=== PATIENT | female | born 1995 | race Caucasian/White ===

== ENCOUNTER 2020-12-24 07:01 | Inpatient (IN) | payer BC ==
[2020-12-24] MEDS ORDERED: Sodium Chloride 0.9% 10 ML Syringe FLUSH PRN (07:20)
[2020-12-24] MEDS ORDERED: Nalbuphine 10 MG/1 ML Vial IVPUSH PRN (07:20)
[2020-12-24] MEDS ORDERED: Ondansetron 4 MG/2 ML SDV IVPUSH PRN (07:20)
[2020-12-24] MEDS ORDERED: Calcium Carbonate 500 MG Tab.Chew PO PRN (07:20)
[2020-12-24] MEDS ORDERED: Oxytocin/Lactated Ringers 10 UNIT/1,000 ML BAG IV SCH ×2 (07:30)
[2020-12-24] MEDS: Lactated Ringers 1,000 ML IV SCH ×3 (07:44→15:36)
[2020-12-24] MEDS ORDERED: Lidocaine 1% 50 ML MDV INJECT ONE (08:30)
--- NOTE | 2020-12-24 08:41 | PCM.LDHP ---
L&D History of Present Illness - General Date of Service: 12/24/20 Admit Problem/Dx: Patient Status Order with Admit Dx/Problem 12/24/20 07:21 Patient Status [ADT] Routine Admission Diagnosis/Problem Admission Diagnosis/Problem Term - History of Present Illness Introduction:: 25 year old here at 39w3 by LMP cw ultrasound presents for elective induction. PNC with myself without complications. - Related Data Allergies/Adverse Reactions: Allergies Allergy/AdvReac Type Severity Reaction Status Date / Time No Known Allergies Allergy Verified 12/07/20 17:38 H&P Review of Systems - Review of Systems: Review Of Systems: See Below General: Reports: No Symptoms HEENT: Reports: No Symptoms Pulmonary: Reports: No Symptoms Cardiovascular: Reports: No Symptoms Gastrointestinal: Reports: No Symptoms Genitourinary: Reports: No Symptoms Musculoskeletal: Reports: No Symptoms Skin: Reports: No Symptoms Psychiatric: Reports: No Symptoms Neurological: Reports: No Symptoms Hematologic/Lymphatic: Reports: No Symptoms Immunologic: Reports: No Symptoms L&D Exam - Exam Exam: See Below - Vital Signs Vital Signs: Last Vital Signs Temp 37.3 C 12/24/20 07:20 Pulse 114 H 12/24/20 07:20 Resp 18 12/24/20 07:20 BP 121/74 12/24/20 07:20 Pulse Ox 99 12/24/20 07:20 Weight: 90.265 kg - OB Specific Contraction Intensity: Moderate Movement: Active Heart Tones: Present Heart Rate (FHR) Variability: Moderate (6-25 bmp) Presentation: Vertex - Duvall Score Duvall Score Cervix Position: Midposition Duvall Score Consistency: Soft Duvall Score Effacement: 51-70% Duvall Score Dilation: 3-4 cm Duvall Score Infant's Station: -2 Duvall Score Total: 8 - Exam General: Alert, Oriented HEENT: PERRLA, Conjunctiva Clear, EACs Clear, EOMI, Hearing Intact, Mucosa Moist & [place], Nares Patent, Normal Nasal Septum, Posterior Pharynx Clear, TMs Clear Neck: Supple, Trachea Midline Lungs: Clear to Auscultation, Normal Respiratory Effort Cardiovascular: Regular Rate, Regular Rhythm GI/Abdominal Exam: Normal Bowel Sounds, Soft, Non-Tender, No Organomegaly, No Distention, No Abnormal Bruit, No Mass, Pelvis Stable Rectal Exam: Normal Exam, Normal Rectal Tone Genitourinary: Normal external exam, Normal bimanual exam, Normal speculum exam Back Exam: Normal Inspection, Full Range of Motion Extremities: Normal Inspection, Normal Range of Motion, Non-Tender, No Pedal Edema, Normal Capillary Refill Skin: Warm, Dry, Intact Neurological: Cranial Nerves Intact, Reflexes Equal Bilateral Psychiatric: Alert, Normal Affect, Normal Mood - Patient Data Lab Results Last 24 hrs: Laboratory Results - last 24 hr 12/24/20 Range/Units 07:46 WBC 8.48 (3.98-10.04) K/mm3 RBC 3.92 L (3.98-5.22) M/mm3 Hgb 11.3 (11.2-15.7) gm/dl Hct 34.0 L (34.1-44.9) % MCV 86.7 (79.4-94.8) fl MCH 28.8 (25.6-32.2) pg MCHC 33.2 (32.2-35.5) g/dl RDW Std Deviation 41.5 (36.4-46.3) fL Plt Count 262 (182-369) K/mm3 MPV 9.6 (9.4-12.3) fl Neut % (Auto) 73.7 H (34.0-71.1) % Lymph % (Auto) 16.3 L (19.3-51.7) % [place] % (Auto) 8.6 (4.7-12.5) % Eos % (Auto) 0.8 (0.7-5.8) Baso % (Auto) 0.2 (0.1-1.2) % Neut # (Auto) 6.25 H (1.56-6.13) K/mm3 Lymph # (Auto) 1.38 (1.18-3.74) K/mm3 [place] # (Auto) 0.73 H (0.24-0.36) K/mm3 Eos # (Auto) 0.07 (0.04-0.36) K/mm3 Baso # (Auto) 0.02 (0.01-0.08) K/mm3 Result Diagrams: 12/24/20 07:46 Problem List Initiated/Reviewed/Updated: Yes Orders Last 24hrs: Active Orders 24 hr Category Date Time Status Patient Status [ADT] Routine ADT 12/24/20 07:21 Active Activity as Tolerated [RC] PFP Care 12/24/20 07:20 Active Communication Order [RC] ASDIRECTED Care 12/24/20 07:20 Active Communication Order [RC] ASDIRECTED Care 12/24/20 07:20 Active Communication Order [RC] ASDIRECTED Care 12/24/20 07:20 Active Communication Order [RC] ASDIRECTED Care 12/24/20 07:20 Active Heart Tones [RC] ASDIRECTED Care 12/24/20 07:22 Active Monitoring [RC] INTERMITTENT Care 12/24/20 07:20 Active Non Stress Test [RC] PER UNIT ROUTINE Care 12/24/20 07:20 Active Notify Provider [RC] ASDIRECTED Care 12/24/20 07:20 Active Notify Provider [RC] PFP Care 12/24/20 07:20 Active Notify Provider [RC] PRN Care 12/24/20 07:20 Active Peripheral IV Care [RC] . DIRECTED Care 12/24/20 07:22 Active Pump Management, Intrathecal [RC] ASDIRECTED Care 12/24/20 07:22 Active Urinary Catheter Assessment [RC] ASDIRECTED Care 12/24/20 07:20 Active Vaginal Exam [RC] ASDIRECTED Care 12/24/20 07:20 Active Vital Signs [RC] PER UNIT ROUTINE Care 12/24/20 07:20 Active Regular Diet [DIET] Diet 12/24/20 Breakfast Active BLOOD BANK HOLD SPECIMEN [BBK] Stat Lab 12/24/20 07:20 Ordered CORONAVIRUS COVID-19 PB [MOLEC] Stat Lab 12/24/20 07:00 Received RAPID PLASMA REAGIN,RPR [CHEM] Stat Lab 12/24/20 07:46 Received Calcium Carbonate [Tums] Med 12/24/20 07:20 Active 1,000 mg PO Q2H PRN Lactated Ringers [Ringers, Lactated] 1,000 ml Med 12/24/20 07:30 Active IV ASDIRECTED Nalbuphine [Nubain] Med 12/24/20 07:20 Active 10 mg IVPUSH Q2H PRN Ondansetron [Zofran] Med 12/24/20 07:20 Active 4 mg IVPUSH Q4H PRN Oxytocin/Lactated Ringers [Pitocin in LR 10 Units/1,000 Med 12/24/20 07:30 Active ML] 10 unit in 1,000 ml IV .CONTINUOUS Oxytocin/Lactated Ringers [Pitocin in LR 10 Units/1,000 Med 12/24/20 07:30 Active ML] 10 unit in 1,000 ml IV TITRATE Sodium Chloride 0.9% [Saline Flush] Med 12/24/20 07:20 Active 10 ml FLUSH ASDIRECTED PRN Electronic Heart Tones Ext w TOCO [WOMSER] Ot 12/24/20 07:20 Ordered Routine Electronic Heart Tones Internal [WOMSER] Per Unit Ot 12/24/20 07:20 Ordered Routine Peripheral IV Insertion Adult [OM.PC] Routine Ot 12/24/20 07:20 Ordered Resuscitation Status Routine Resus Stat 12/24/20 07:20 Ordered Medication Orders Calcium Carbonate/Glycine (Calcium Carbonate 500 Mg Tab.Chew) 1,000 mg PO Q2H PRN PRN Reason: Indigestion Lactated Ringer's (Ringers, Lactated) 1,000 mls @ 100 mls/hr IV ASDIRECTED ARTURO Last Admin: 12/24/20 07:44 Dose: 100 mls/hr Documented by: RUMMVIR Oxytocin/Lactated Ringer's (Pitocin In Lr 10 Units/1,000 Ml) 10 unit in 1,000 mls @ 12 mls/hr IV TITRATE ARTURO; Protocol Last Admin: 12/24/20 08:07 Dose: 2 munits/min, 12 mls/hr Documented by: RUMMVIR Oxytocin/Lactated Ringer's (Pitocin In Lr 10 Units/1,000 Ml) 10 unit in 1,000 mls @ 500 mls/hr IV .CONTINUOUS ARTURO Nalbuphine HCl (Nalbuphine 10 Mg/1 Ml Vial) 10 mg IVPUSH Q2H PRN PRN Reason: Pain Ondansetron HCl (Ondansetron 4 Mg/2 Ml Sdv) 4 mg IVPUSH Q4H PRN PRN Reason: Nausea/Vomiting Sodium Chloride (Sodium Chloride 0.9% 10 Ml Syringe) 10 ml FLUSH ASDIRECTED PRN PRN Reason: Keep Vein Open Assessment/Plan Comment:: Term induction - pitocin, arom when able - labs reviewed -admission labs and covid pending -anesthesia per patient request.
--- NOTE | 2020-12-24 12:53 | PCM.PNLD ---
Labor Progress Note - VS & Meds Vital Signs: Last Vital Signs Temp 37.3 C 12/24/20 07:20 Pulse 114 H 12/24/20 07:20 Resp 18 12/24/20 07:20 BP 121/74 12/24/20 07:20 Pulse Ox 99 12/24/20 07:20 Active Medications: Current Medications Calcium Carbonate/Glycine (Calcium Carbonate 500 Mg Tab.Chew) 1,000 mg PO Q2H PRN PRN Reason: Indigestion Lactated Ringer's (Ringers, Lactated) 1,000 mls @ 100 mls/hr IV ASDIRECTED ARTURO Last Admin: 12/24/20 07:44 Dose: 100 mls/hr Documented by: Oxytocin/Lactated Ringer's (Pitocin In Lr 10 Units/1,000 Ml) 10 unit in 1,000 mls @ 12 mls/hr IV TITRATE ARTURO; Protocol Last Titration: 12/24/20 12:33 Dose: 14 munits/min, 84 mls/hr Documented by: Oxytocin/Lactated Ringer's (Pitocin In Lr 10 Units/1,000 Ml) 10 unit in 1,000 mls @ 500 mls/hr IV .CONTINUOUS ARTURO Nalbuphine HCl (Nalbuphine 10 Mg/1 Ml Vial) 10 mg IVPUSH Q2H PRN PRN Reason: Pain Ondansetron HCl (Ondansetron 4 Mg/2 Ml Sdv) 4 mg IVPUSH Q4H PRN PRN Reason: Nausea/Vomiting Sodium Chloride (Sodium Chloride 0.9% 10 Ml Syringe) 10 ml FLUSH ASDIRECTED PRN PRN Reason: Keep Vein Open Discontinued Medications Lidocaine HCl (Lidocaine 1% 50 Ml Mdv) 20 ml INJECT ONETIME ONE Stop: 12/24/20 08:31 - Uterine Contractions Contraction Intensity: Moderate - Monitoring Heart Rate (FHR) Variability: Moderate (6-25 bmp) - Vaginal Exam Dilation (cm): 3 Effacement (Percent): 90 Station: 0 Cervical Position: Anterior - Labor Progress (Free Text) Labor Progress: AROM clear fluid. Doing well
[2020-12-24] MEDS ORDERED: fentaNYL 100 MCG/2 ML SDV ONE (13:22)
[2020-12-24] MEDS ORDERED: diphenhydrAMINE 50 MG/ML SDV IVPUSH PRN (13:23)
[2020-12-24] MEDS ORDERED: fentaNYL 100 MCG/2 ML SDV EPIDUR PRN (13:23)
[2020-12-24] MEDS ORDERED: ePHEDrine 50 MG/ML SDV IVPUSH PRN (13:23)
[2020-12-24] MEDS ORDERED: Bupivacaine/fentaNYL/NS 100 ML Bag EPIDUR PRN (13:23)
--- NOTE | 2020-12-24 14:00 | PCM.PREANE ---
Preanesthetic Assessment - Procedure Proposed Procedure: epidural - Anesthesia/Transfusion/Family Hx Anesthesia History: Prior Anesthesia Without Reaction Family History of Anesthesia Reaction: No Transfusion History: No Prior Transfusion(s) - Review of Systems General: Fatigue, Malaise Pulmonary: No Symptoms Cardiovascular: No Symptoms Gastrointestinal: Abdominal Pain (labor) Neurological: No Symptoms Other: Reports: None - Physical Assessment Vital Signs: Last Vital Signs Temp 37.3 C 12/24/20 07:20 Pulse 114 H 12/24/20 07:20 Resp 18 12/24/20 07:20 BP 121/74 12/24/20 07:20 Pulse Ox 99 12/24/20 07:20 Height: 1.75 m Weight: 90.265 kg ASA Class: 2 Mental Status: Alert & Oriented x3 Airway Class: Mallampati = 1 Dentition: Reports: Normal Dentition Thyro-Mental Finger Breadths: 3 Mouth Opening Finger Breadths: 3 ROM/Head Extension: Full Lungs: Clear to Auscultation, Normal Respiratory Effort Cardiovascular: Regular Rate, Regular Rhythm - Lab Values: Laboratory Last Values WBC 8.48 K/mm3 (3.98-10.04) 12/24/20 07:46 RBC 3.92 M/mm3 (3.98-5.22) L 12/24/20 07:46 Hgb 11.3 gm/dl (11.2-15.7) 12/24/20 07:46 Hct 34.0 % (34.1-44.9) L 12/24/20 07:46 MCV 86.7 fl (79.4-94.8) 12/24/20 07:46 MCH 28.8 pg (25.6-32.2) 12/24/20 07:46 MCHC 33.2 g/dl (32.2-35.5) 12/24/20 07:46 RDW Std Deviation 41.5 fL (36.4-46.3) 12/24/20 07:46 Plt Count 262 K/mm3 (182-369) 12/24/20 07:46 MPV 9.6 fl (9.4-12.3) 12/24/20 07:46 Neut % (Auto) 73.7 % (34.0-71.1) H 12/24/20 07:46 Lymph % (Auto) 16.3 % (19.3-51.7) L 12/24/20 07:46 [place] % (Auto) 8.6 % (4.7-12.5) 12/24/20 07:46 Eos % (Auto) 0.8 (0.7-5.8) 12/24/20 07:46 Baso % (Auto) 0.2 % (0.1-1.2) 12/24/20 07:46 Neut # (Auto) 6.25 K/mm3 (1.56-6.13) H 12/24/20 07:46 Lymph # (Auto) 1.38 K/mm3 (1.18-3.74) 12/24/20 07:46 [place] # (Auto) 0.73 K/mm3 (0.24-0.36) H 12/24/20 07:46 Eos # (Auto) 0.07 K/mm3 (0.04-0.36) 12/24/20 07:46 Baso # (Auto) 0.02 K/mm3 (0.01-0.08) 12/24/20 07:46 SARS-CoV-2 RNA (PB) Negative (NEGATIVE) 12/24/20 07:00 - Allergies Allergies/Adverse Reactions: Allergies Allergy/AdvReac Type Severity Reaction Status Date / Time No Known Allergies Allergy Verified 12/07/20 17:38 - Anesthesia Plan Pre-Op Medication Ordered: None - Acknowledgements Anesthesia Type Planned: Epidural Pt an Appropriate Candidate for the Planned Anesthesia: Yes Alternatives and Risks of Anesthesia Discussed w Pt/Guardian: Yes Pt/Guardian Understands and Agrees with Anesthesia Plan: Yes PreAnesthesia Questionnaire - Past Health History Medical/Surgical History: Denies Medical/Surgical History Gastrointestinal History: Reports: GERD 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: - SUBSTANCE USE Tobacco Use Status *Q: Never Tobacco User Second Hand Smoke Exposure: No Days Per Week of Alcohol Use: 0 Recreational Drug Use History: No - HOME MEDS Home Medications: Home Meds Pnv No.95/Ferrous Fum/Folic AC [ Caplet] 1 tab PO DAILY 12/24/20 [History] - CURRENT (IN HOUSE) MEDS Current Meds: Current Medications Calcium Carbonate/Glycine (Calcium Carbonate 500 Mg Tab.Chew) 1,000 mg PO Q2H PRN PRN Reason: Indigestion Diphenhydramine HCl (Diphenhydramine 50 Mg/Ml Sdv) 25 mg IVPUSH Q6H PRN PRN Reason: pruritis Ephedrine Sulfate (Ephedrine 50 Mg/Ml Sdv) 5 mg IVPUSH ASDIRECTED PRN PRN Reason: Hypotension Fentanyl (Fentanyl 100 Mcg/2 Ml Sdv) 100 mcg EPIDUR Q3H PRN PRN Reason: Pain Last Admin: 12/24/20 13:35 Dose: 100 mcg Documented by: Fentanyl/Bupivacaine HCl (Bupivacaine/Fentanyl/Ns 100 Ml Bag) 100 ml EPIDUR ASDIRECTED PRN PRN Reason: Pain Last Admin: 12/24/20 13:34 Dose: 100 ml Documented by: Lactated Ringer's (Ringers, Lactated) 1,000 mls @ 100 mls/hr IV ASDIRECTED ARTURO Last Admin: 12/24/20 13:24 Dose: 100 mls/hr Documented by: Oxytocin/Lactated Ringer's (Pitocin In Lr 10 Units/1,000 Ml) 10 unit in 1,000 mls @ 12 mls/hr IV TITRATE ARTURO; Protocol Last Titration: 12/24/20 12:33 Dose: 14 munits/min, 84 mls/hr Documented by: Oxytocin/Lactated Ringer's (Pitocin In Lr 10 Units/1,000 Ml) 10 unit in 1,000 mls @ 500 mls/hr IV .CONTINUOUS ARTURO Nalbuphine HCl (Nalbuphine 10 Mg/1 Ml Vial) 10 mg IVPUSH Q2H PRN PRN Reason: Pain Ondansetron HCl (Ondansetron 4 Mg/2 Ml Sdv) 4 mg IVPUSH Q4H PRN PRN Reason: Nausea/Vomiting Sodium Chloride (Sodium Chloride 0.9% 10 Ml Syringe) 10 ml FLUSH ASDIRECTED PRN PRN Reason: Keep Vein Open Discontinued Medications Fentanyl (Fentanyl 100 Mcg/2 Ml Sdv) Confirm Administered Dose 100 mcg .ROUTE .STK-MED ONE Stop: 12/24/20 13:23 Last Admin: 12/24/20 13:36 Dose: Not Given Documented by: Lidocaine HCl (Lidocaine 1% 50 Ml Mdv) 20 ml INJECT ONETIME ONE Stop: 12/24/20 08:31
[2020-12-24] MEDS ORDERED: ePHEDrine 50 MG/ML SDV ONE (16:00)
[2020-12-24] MEDS ORDERED: Bupivacaine 0.25% 10 ML SDV ONE (16:00)
--- NOTE | 2020-12-24 21:32 | PCM.SN.2 ---
- Free Text/Narrative Note: Stage I - Patient presented for induction of labor. Pitocin. AROM. Clear fluid. Epidural for anesthesia. Progressed to complete with overall reassuring heart tones. Some variable decelerations Stage II - of viable female, weight 3100g, 6/9 APGARS. Head delivered in controlled manner over intact perineum. Body and shoulders atraumatically. To maternal abdomen. Cord clamped and cut. Cord blood collected. Positive cry. Stage III - of intact placenta. 3vc. 2nd degree laceration repaired with 3-0 vicryl. EBL 180.
[2020-12-24] MEDS ORDERED: Benzocaine/Menthol 20%-0.5% Spray 56 GM Canister TOP PRN (22:13)
[2020-12-24] MEDS ORDERED: Witch Hazel Medicated Pads 40/Jar TOP PRN (22:13)
[2020-12-25] MEDS: Ibuprofen 600 MG Tab PO PRN ×3 (00:53→20:33)
--- NOTE | 2020-12-25 06:09 | PCM.PNPP ---
- General Info Date of Service: 12/25/20 Subjective Update: day one. Doing well. Minimal lochia. Baby nursing with some difficulty. Functional Status: Reports: Pain Controlled - Review of Systems General: Reports: No Symptoms HEENT: Reports: No Symptoms Pulmonary: Reports: No Symptoms Cardiovascular: Reports: No Symptoms Gastrointestinal: Reports: No Symptoms Genitourinary: Reports: No Symptoms Musculoskeletal: Reports: No Symptoms Skin: Reports: No Symptoms Neurological: Reports: No Symptoms Psychiatric: Reports: No Symptoms - General Info Date of Service: 12/25/20 - Patient Data Vital Signs - Most Recent: Last Vital Signs Temp 36.4 C 12/25/20 03:58 Pulse 74 12/25/20 03:58 Resp 16 12/25/20 03:58 BP 96/54 L 12/25/20 03:58 Pulse Ox 94 L 12/25/20 03:58 Weight - Most Recent: 90.265 kg I&O - Last 24 Hours: Intake & Output 12/24/20 12/24/20 12/25/20 14:59 22:59 06:59 Intake Total 1000 1320 Output Total Balance 101F 1320 Lab Results - Last 24 Hours: Laboratory Results - last 24 hr 12/24/20 12/24/20 12/24/20 Range/Units 07:00 07:46 07:46 WBC 8.48 (3.98-10.04) K/mm3 RBC 3.92 L (3.98-5.22) M/mm3 Hgb 11.3 (11.2-15.7) gm/dl Hct 34.0 L (34.1-44.9) % MCV 86.7 (79.4-94.8) fl MCH 28.8 (25.6-32.2) pg MCHC 33.2 (32.2-35.5) g/dl RDW Std Deviation 41.5 (36.4-46.3) fL Plt Count 262 (182-369) K/mm3 MPV 9.6 (9.4-12.3) fl Neut % (Auto) 73.7 H (34.0-71.1) % Lymph % (Auto) 16.3 L (19.3-51.7) % [place] % (Auto) 8.6 (4.7-12.5) % Eos % (Auto) 0.8 (0.7-5.8) Baso % (Auto) 0.2 (0.1-1.2) % Neut # (Auto) 6.25 H (1.56-6.13) K/mm3 Lymph # (Auto) 1.38 (1.18-3.74) K/mm3 [place] # (Auto) 0.73 H (0.24-0.36) K/mm3 Eos # (Auto) 0.07 (0.04-0.36) K/mm3 Baso # (Auto) 0.02 (0.01-0.08) K/mm3 RPR Non-reactive (NONREACTIVE) SARS-CoV-2 RNA (PB) Negative (NEGATIVE) Med Orders - Current: Current Medications Benzocaine/Menthol (Benzocaine/Menthol 20%-0.5% [place] 56 Gm Canister) 0 gm TOP ASDIRECTED PRN PRN Reason: Perineal Comfort Measure Last Admin: 12/25/20 00:53 Dose: 1 canister Documented by: Ibuprofen (Ibuprofen 600 Mg Tab) 600 mg PO Q6H PRN PRN Reason: Mild pain or fever Last Admin: 12/25/20 00:53 Dose: 600 mg Documented by: Anastacio Santana (Witch Esther Medicated Pads 40/Jar) 1 pad TOP ASDIRECTED PRN PRN Reason: Perineal Comfort Measure Last Admin: 12/25/20 00:53 Dose: 1 container Documented by: Discontinued Medications Calcium Carbonate/Glycine (Calcium Carbonate 500 Mg Tab.Chew) 1,000 mg PO Q2H PRN PRN Reason: Indigestion Diphenhydramine HCl (Diphenhydramine 50 Mg/Ml Sdv) 25 mg IVPUSH Q6H PRN PRN Reason: pruritis Ephedrine Sulfate (Ephedrine 50 Mg/Ml Sdv) 5 mg IVPUSH ASDIRECTED PRN PRN Reason: Hypotension Fentanyl (Fentanyl 100 Mcg/2 Ml Sdv) 100 mcg EPIDUR Q3H PRN PRN Reason: Pain Last Admin: 12/24/20 13:35 Dose: 100 mcg Documented by: Fentanyl (Fentanyl 100 Mcg/2 Ml Sdv) Confirm Administered Dose 100 mcg .ROUTE .STK-MED ONE Stop: 12/24/20 13:23 Last Admin: 12/24/20 13:36 Dose: Not Given Documented by: Fentanyl/Bupivacaine HCl (Bupivacaine/Fentanyl/Ns 100 Ml Bag) 100 ml EPIDUR ASD IRECTED PRN PRN Reason: Pain Last Admin: 12/24/20 13:34 Dose: 100 ml Documented by: Lactated Ringer's (Ringers, Lactated) 1,000 mls @ 100 mls/hr IV ASDIRECTED ARTURO Last Admin: 12/24/20 15:36 Dose: 100 mls/hr Documented by: Oxytocin/Lactated Ringer's (Pitocin In Lr 10 Units/1,000 Ml) 10 unit in 1,000 mls @ 12 mls/hr IV TITRATE ARTURO; Protocol Last Titration: 12/24/20 12:33 Dose: 14 munits/min, 84 mls/hr Documented by: Oxytocin/Lactated Ringer's (Pitocin In Lr 10 Units/1,000 Ml) 10 unit in 1,000 mls @ 500 mls/hr IV .CONTINUOUS ARTURO Lidocaine HCl (Lidocaine 1% 50 Ml Mdv) 20 ml INJECT ONETIME ONE Stop: 12/24/20 08:31 Last Admin: 12/24/20 22:31 Dose: Not Given Documented by: Nalbuphine HCl (Nalbuphine 10 Mg/1 Ml Vial) 10 mg IVPUSH Q2H PRN PRN Reason: Pain Ondansetron HCl (Ondansetron 4 Mg/2 Ml Sdv) 4 mg IVPUSH Q4H PRN PRN Reason: Nausea/Vomiting Sodium Chloride (Sodium Chloride 0.9% 10 Ml Syringe) 10 ml FLUSH ASDIRECTED PRN PRN Reason: Keep Vein Open - Infant Interaction Support Person: - Recovery Exam Fundal Tone: Firm Fundal Level: At Umbilicus Fundal Placement: Midline Lochia Amount: Small Lochia Color: Rubra/Red Perineum Description: Edematous Episiotomy/Laceration: None Bladder Status: Voiding - Exam General: Alert, Oriented HEENT: Pupils Equal Neck: Supple Lungs: Clear to Auscultation, Normal Respiratory Effort Cardiovascular: Regular Rate, Regular Rhythm GI/Abdominal Exam: Normal Bowel Sounds, Soft, Non-Tender, No Organomegaly, No Distention, No Abnormal Bruit Extremities: Normal Inspection, Normal Range of Motion, Non-Tender, No Pedal Edema, Normal Capillary Refill Skin: Warm, Dry, Intact Neurological: No New Focal Deficit Psy/Mental Status: Alert, Normal Affect, Normal Mood - Problem List Review Problem List Initiated/Reviewed/Updated: Yes - My Orders Last 24 Hours: My Active Orders 12/24/20 Breakfast Regular Diet [DIET] 12/24/20 07:20 Resuscitation Status Routine 12/24/20 22:13 Benzocaine/Menthol [Dermoplast Pain Relief [place]] See Dose Instructions TOP ASDIRECTED PRN Ibuprofen [Motrin] 600 mg PO Q6H PRN witch Esther [Tucks] 1 pad TOP ASDIRECTED PRN Heat Therapy [OM.PC] PRN 12/24/20 22:13 Activity as Tolerated [RC] PER UNIT ROUTINE Vital Signs [RC] 03,,, Assess Lochia [WOMSER] Per Unit Routine Assess Uterine Involution [WOMSER] Per Unit Routine Breast Pump [WOMSER] Per Unit Routine Medication Administration Instruction [OM.PC] Routine Perineal Care [OM.PC] Per Unit Routine Sitz Bath [OM.PC] Per Unit Routine 12/25/20 22:13 Heat Therapy [OM.PC] PRN - Assessment Assessment:: PPD 1 Doing well Support Probable discharge tomorrow.
--- NOTE | 2020-12-25 11:10 | PCM48HPAN ---
Post Anesthesia Note - EVALUATION WITHIN 48HRS OF ANESTHETIC Vital Signs in Normal Range: Yes Patient Participated in Evaluation: Yes Respiratory Function Stable: Yes Airway Patent: Yes Cardiovascular Function Stable: Yes Hydration Status Stable: Yes Pain Control Satisfactory: Yes Nausea and Vomiting Control Satisfactory: Yes Mental Status Recovered: Yes Vital Signs: Last Vital Signs Temp 36.6 C 12/25/20 08:07 Pulse 80 12/25/20 08:07 Resp 16 12/25/20 08:07 BP 121/73 12/25/20 08:07 Pulse Ox 100 12/25/20 08:07 - COMMENTS/OBSERVATIONS Free Text/Narrative:: no anesthesia complications noted
[2020-12-26] MEDS ORDERED: Measles, Mumps & Rubella Vaccine 0.5 ML SDV SUBCUT ONE (07:53)
--- NOTE | 2020-12-26 08:03 | PCM.DCSUM1 ---
Discharge Summary - Hospital Course Diagnosis: Stroke: No - Discharge Data Discharge Date: 12/26/20 Discharge Disposition: Home, Self-Care 01 Condition: Good - Referral to Home Health Primary Care Physician: Justine Goncalves MD - Patient Instructions Diet: Usual Diet as Tolerated Activity: No Strenuous Activities Driving: May Drive Today Showering/Bathing: May Shower Notify Provider of: Fever, Increased Pain, Swelling and Redness, Drainage, Nausea and/or Vomiting - Discharge Plan *PRESCRIPTION DRUG MONITORING PROGRAM REVIEWED*: No *COPY OF PRESCRIPTION DRUG MONITORING REPORT IN PATIENT LENNOX: No Home Medications: Home Meds Pnv No.95/Ferrous Fum/Folic AC [ [place]] 1 tab PO DAILY 12/24/20 [History] Referrals: Justine Goncalves MD [Primary Care Provider] - (2 weeks) - Discharge Summary/Plan Comment DC Time >30 min.: No - General Info Date of Service: 12/26/20 - Review of Systems General: Reports: No Symptoms HEENT: Reports: No Symptoms Pulmonary: Reports: No Symptoms Cardiovascular: Reports: No Symptoms Gastrointestinal: Reports: No Symptoms Genitourinary: Reports: No Symptoms Musculoskeletal: Reports: No Symptoms Skin: Reports: No Symptoms Neurological: Reports: No Symptoms Psychiatric: Reports: No Symptoms - Patient Data Vitals - Most Recent: Last Vital Signs Temp 36.5 C 12/26/20 02:12 Pulse 67 12/26/20 02:12 Resp 14 12/26/20 02:12 BP 104/50 L 12/26/20 02:12 Pulse Ox 94 L 12/26/20 02:12 Weight - Most Recent: 90.265 kg I&O - Last 24 hours: Intake & Output 12/25/20 12/26/20 12/26/20 22:59 06:59 14:59 Intake Total 640 Balance 640 Med Orders - Current: Current Medications Benzocaine/Menthol (Benzocaine/Menthol 20%-0.5% [place] 56 Gm Canister) 0 gm TOP ASDIRECTED PRN PRN Reason: Perineal Comfort Measure Last Admin: 12/25/20 00:53 Dose: 1 canister Documented by: Ibuprofen (Ibuprofen 600 Mg Tab) 600 mg PO Q6H PRN PRN Reason: Mild pain or fever Last Admin: 12/25/20 20:33 Dose: 600 mg Documented by: Anastacio Santana (Anastacio Santana Medicated Pads 40/Jar) 1 pad TOP ASDIRECTED PRN PRN Reason: Perineal Comfort Measure Last Admin: 12/25/20 00:53 Dose: 1 container Documented by: Discontinued Medications Calcium Carbonate/Glycine (Calcium Carbonate 500 Mg Tab.Chew) 1,000 mg PO Q2H PRN PRN Reason: Indigestion Diphenhydramine HCl (Diphenhydramine 50 Mg/Ml Sdv) 25 mg IVPUSH Q6H PRN PRN Reason: pruritis Ephedrine Sulfate (Ephedrine 50 Mg/Ml Sdv) 5 mg IVPUSH ASDIRECTED PRN PRN Reason: Hypotension Fentanyl (Fentanyl 100 Mcg/2 Ml Sdv) 100 mcg EPIDUR Q3H PRN PRN Reason: Pain Last Admin: 12/24/20 13:35 Dose: 100 mcg Documented by: Fentanyl (Fentanyl 100 Mcg/2 Ml Sdv) Confirm Administered Dose 100 mcg .ROUTE .K-MED ONE Stop: 12/24/20 13:23 Last Admin: 12/24/20 13:36 Dose: Not Given Documented by: Fentanyl/Bupivacaine HCl (Bupivacaine/Fentanyl/Ns 100 Ml Bag) 100 ml EPIDUR ASDIRECTED PRN PRN Reason: Pain Last Admin: 12/24/20 13:34 Dose: 100 ml Documented by: Lactated Ringer's (Ringers, Lactated) 1,000 mls @ 100 mls/hr IV ASDIRECTED ARTURO Last Admin: 12/24/20 15:36 Dose: 100 mls/hr Documented by: Oxytocin/Lactated Ringer's (Pitocin In Lr 10 Units/1,000 Ml) 10 unit in 1,000 mls @ 12 mls/hr IV TITRATE ARTURO; Protocol Last Titration: 12/24/20 12:33 Dose: 14 munits/min, 84 mls/hr Documented by: Oxytocin/Lactated Ringer's (Pitocin In Lr 10 Units/1,000 Ml) 10 unit in 1,000 mls @ 500 mls/hr IV .CONTINUOUS ARTURO Lidocaine HCl (Lidocaine 1% 50 Ml Mdv) 20 ml INJECT ONETIME ONE Stop: 12/24/20 08:31 Last Admin: 12/24/20 22:31 Dose: Not Given Documented by: Measles/Mumps/Rubella Vaccine Live (Measles, Mumps & Rubella Vaccine 0.5 Ml Sdv) 0.5 ml SUBCUT .ONCE ONE Stop: 12/26/20 07:54 Nalbuphine HCl (Nalbuphine 10 Mg/1 Ml Vial) 10 mg IVPUSH Q2H PRN PRN Reason: Pain Ondansetron HCl (Ondansetron 4 Mg/2 Ml Sdv) 4 mg IVPUSH Q4H PRN PRN Reason: Nausea/Vomiting Sodium Chloride (Sodium Chloride 0.9% 10 Ml Syringe) 10 ml FLUSH ASDIRECTED PRN PRN Reason: Keep Vein Open - Exam General: Reports: Alert, Oriented HEENT: Reports: Pupils Equal, Pupils Reactive, EOMI, Mucous Membr. Moist/[place] Neck: Reports: Supple Lungs: Reports: Clear to Auscultation, Normal Respiratory Effort Cardiovascular: Reports: Regular Rate, Regular Rhythm GI/Abdominal Exam: Normal Bowel Sounds, Soft, Non-Tender, No Organomegaly, No Distention, No Abnormal Bruit, No Mass, Pelvis Stable Rectal (Female) Exam: Normal Exam, Normal Rectal Tone Back Exam: Reports: Normal Inspection, Full Range of Motion Extremities: Normal Inspection, Normal Range of Motion, Non-Tender, No Pedal Edema, Normal Capillary Refill Skin: Reports: Warm, Dry, Intact Wound/Incisions: Reports: Healing Well Neurological: Reports: No New Focal Deficit Psy/Mental Status: Reports: Alert, Normal Affect, Normal Mood
[2020-12-26] MEDS: Ibuprofen 600 MG Tab PO PRN (12:05)
== END 2020-12-26 14:11 | disposition home or self-care (01) | DRG 560 ==
LOC: JD.OB 07:01 → OBSVTOIN 20:53 → JD.OB 20:53
PROVIDERS: ADMIT Obstetrics & Gynecology; ATTEND Obstetrics & Gynecology
PROC: 10E0XZZ Delivery of Products of Conception, External Approach (ICD-10-PCS; principal; 2020-12-24)
PROC: 10907ZC Drainage of Amniotic Fluid, Therapeutic from Products of Conception, Via Natural or Artificial Opening (ICD-10-PCS; 2020-12-24)
PROC: 3E033VJ Introduction of Other Hormone into Peripheral Vein, Percutaneous Approach (ICD-10-PCS; 2020-12-24)
PROC: 0KQM0ZZ Repair Perineum Muscle, Open Approach (ICD-10-PCS; 2020-12-24)
PROC: 3E0R3BZ Introduction of Anesthetic Agent into Spinal Canal, Percutaneous Approach (ICD-10-PCS; 2020-12-24)
PROC: 3E0234Z Introduction of Serum, Toxoid and Vaccine into Muscle, Percutaneous Approach (ICD-10-PCS; 2020-12-26)
DX: O99.62 Diseases of the digestive system complicating childbirth (principal); Z37.0 Single live birth; O70.1 Second degree perineal laceration during delivery; O76 Abnormality in fetal heart rate and rhythm complicating labor and delivery; Z23 Encounter for immunization; K21.9 Gastro-esophageal reflux disease without esophagitis; Z3A.39 39 weeks gestation of pregnancy; Z20.822 Contact with and (suspected) exposure to COVID-19
CPT/HCPCS: 01967; 36415; 51702; 59025; 59409; 85025; 86592; 90471; 90707; A9270-GY; J2590; J3010; J3490; J7120; U0002